=== PATIENT | female | born 1975 | race Two or more races ===

== ENCOUNTER → 2025-06-07 | Outpatient (CLI) | payer OTHER, MEDICAID, SELFPAY ==
--- NOTE | 2025-06-07 09:32 | XR_ITS ---
EXAMINATION: PA lateral chest 2 views TECHNIQUE: Upright PA lateral chest 2 views Date and time: June 07, 2025, 0947 hours INDICATIONS: Preop FINDINGS: Normal heart size Minor scarring at the left base and right base No lobar pneumonia or pulmonary edema Moderate osteopenia IMPRESSION: No active disease
== END | disposition home or self-care (01) ==
PROVIDERS: PCP Family Medicine; Referring Provider Physician Assistant; Visit Provider Physician Assistant
DX: Z01.818 Encounter for other preprocedural examination (principal)
CPT/HCPCS: 71046

== ENCOUNTER → 2025-06-12 | Outpatient (CLI) | payer OTHER, MEDICAID, SELFPAY ==
--- NOTE | 2025-06-12 15:45 | XR_ITS ---
EXAMINATION: PA lateral chest 2 views TECHNIQUE: Upright PA lateral chest 2 views Date and time: June 12, 2025, 1603 hours, comparison June 07, 2025 INDICATIONS: Preop, coughing FINDINGS: Atelectasis versus mild pneumonia left base, clinical correlation advised Accentuation basilar bronchovascular markings. Normal heart size No pulmonary edema Moderate osteopenia IMPRESSION: Basilar bronchitis pattern Atelectasis versus mild pneumonia left base, clinical correlation advised
== END | disposition home or self-care (01) ==
PROVIDERS: PCP Physician Assistant; Referring Provider Physician Assistant; Visit Provider Physician Assistant
DX: R91.8 Other nonspecific abnormal finding of lung field (principal); R05.3 Chronic cough
CPT/HCPCS: 71046